=== PATIENT | female | born 1985 | race Caucasian/White ===

== ENCOUNTER 2023-07-15 17:29 | Emergency (ER) | payer OTHER, SELFPAY ==
[2023-07-15 17:36] VITALS: BP 126/87; PULSE 84; RESP 16; TEMP 36.8; O2SAT 99
--- NOTE | 2023-07-15 17:39 | ED.URI ---
HPI - URI/Sore Throat General Chief Complaint: Upper Respiratory Infection Stated Complaint: Cough/Congestion/Flank Pain Source: patient, RN notes reviewed and old records reviewed Mode of arrival: ambulatory Limitations: no limitations History of Present Illness HPI Narrative: 37-year-old female presents to [facility] with complaints of cough, congestion that started weeping of May. Patient states has been taking Mucinex with no relief. Patient also states was seen at another urgent care the beginning of May and given antibiotics and steroids but states is having worsening cough and congestion. MD elicited complaint: cough and nasal congestion Onset (ago): month(s) (2) Consistency: constant Severity: moderate Description of mucous: yellow Exacerbating factors: nothing Relieving factors: nothing Treatments prior to arrival: cold medicine , antibiotics and other ( Steroids) Related Data Allergies Allergy/AdvReac Type Severity Reaction Status Date / Time No Known Allergies Allergy Unverified 01/21/18 10:09 Review of Systems Constitutional: Constitutional: Reports no additional constitutional complaints, Denies body ache(s), Denies chills, Denies fatigue, Denies fever(s) and Denies headache(s) Eyes: Eyes: Reports no additional eye complaints and Denies blurry vision ENT: Reports system reviewed and no additional complaints, except as documented, Denies vertigo, Denies dizziness, Denies ear discharge, Denies otalgia, Denies facial pain, Denies headache(s), Denies nasal congestion, Reports nasal discharge, Reports post nasal drip, Reports sinus pain, Reports sinus pressure and Denies sore throat Cardiovascular: Cardiovascular: Reports no additional cardiovascular complaints, Denies chest pain, Denies chest pain at rest, Denies rapid heart rate and Denies dyspnea Respiratory: Respiratory: Reports no additional respiratory complaints, Reports chest congestion, Reports cough, Denies pain on inspiration, Denies pain with cough and Denies dyspnea Gastrointestinal: Gastrointestinal: Denies abdominal pain, Denies diarrhea, Denies nausea and Denies vomiting Integumentary/Breasts: Skin/Breast: Denies rash Neurologic: Reports system reviewed and no additional complaints, except as documented, Denies vertigo, Denies dizziness and Denies headache(s) Endocrine: Endocrine: Denies fatigue PMFSH Comments At the time of my signature, I reviewed and agree with the nursing past medical, surgical, social, and family history. There is no relevant family history pertinent to the patient complaint. Exam Const: General: cooperative, healthy appearing, no acute distress and well nourished Nutritional Appearance: well nourished Orientation/consciousness: patient oriented x3 Limitations: no limitations HENMT: Head: normal to inspection and normocephalic Ears: external ears normal, mastoids normal, Abnormal EAC present and TM abnormal wth effusion serous bilateral Face/Nose/Sinus: Abnormal mucous membranes and turbinates present boggy and erythematous, Nasal discharge present purulent, normal facial exam and No sinus tenderness Face and sinus: normal facial exam Mouth: Yes Normal oral and palatal mucosa present, Yes oropharynx normal and Yes moist mucous membranes Throat: posterior oropharynx normal, tonsils normal, uvula midline and no uvular edema Eyes: General: appearance normal, both eyes and all related structures Sclera: sclerae normal Pupils: Equal, round and reactive pupils present Resp: Effort & Inspection: normal respiratory effort, able to speak in complete sentences, no audible wheezes, no cough, no respiratory distress and no retractions Auscultation: clear to auscultation bilaterally, no crackles, no rales, no rhonchi and no wheezes Cardio: Rate: regular rate Rhythm: regular rhythm Skin: General skin exam: normal color and no rashes or lesions noted Neuro: General: patient oriented x3 Cranial nerves: Yes Equal, round
[2023-07-15 17:40] VITALS: BP 126/87; PULSE 84; RESP 16; TEMP 36.8; O2SAT 99
== END 2023-07-15 17:53 | disposition home or self-care (01) ==
PROVIDERS: Emergency Provider Registered Nurse
DX: J32.9 Chronic sinusitis, unspecified (principal); J30.89 Other allergic rhinitis
CPT/HCPCS: 99213; G0463

== ENCOUNTER 2024-12-03 13:00 | Emergency (ER) | payer OTHER, SELFPAY ==
--- NOTE | ~2024-12-03 | XR_ITS ---
[id number] Ordering provider: Renuka Solano NP History: . pain anterior aspect, boyfriend picked pt up . Comparison: None. FINDINGS: BONES: No acute right rib fracture or fracture of the visualized osseous structures. LUNGS: No effusions or infiltrates. No pneumothorax. SOFT TISSUES: Normal. IMPRESSION: No right rib fracture (Note: subtle/nondisplaced rib fractures can be occult on plain films and if th ere is continued clinical suspicion for rib fracture, recommend follow up CT chest). Reviewed, dictated and finalized at location A. IMPRESSION: No right rib fracture (Note: subtle/nondisplaced rib fractures can be occult on plain films and if there is continued clinical suspicion for rib fracture, rec ommend follow up CT chest).
--- NOTE | 2024-12-03 13:12 | ED.BACK ---
HPI - Back Pain/Injury General Chief Complaint: Unspecified Stated Complaint: Rib Pain Time Seen by Provider: 12/03/24 13:12 Source: patient Mode of arrival: ambulatory Limitations: no limitations History of Present Illness HPI Narrative: 39-year-old female presents with right anterior rib pain. Patient states last night she was having some back pain and asked her boyfriend to pop her back. Patient states her boyfriend picked her up from behind and lifted her, felt pain and pop to right ribs. Pain worse with taking deep breath and laughing. all systems reviewed and negative except as noted above. Related Data Allergies Allergy/AdvReac Type Severity Reaction Status Date / Time No Known Allergies Allergy Unverified 01/21/18 10:09 Review of Systems Review of Systems: CONSTITUTIONAL: Denies fever, chills, or sweats. EYES: Denies visual changes, redness, or discharge. ENT: Denies rhinorrhea, congestion, sore throat, or otalgia. CARDIOVASCULAR: Denies chest pain, palpitations, or edema. RESPIRATORY: Denies cough or dyspnea. GASTROINTESTINAL: Denies abdominal pain, nausea, vomiting, or diarrhea. GENITOURINARY: Denies dysuria or hematuria. SKIN: Denies rash or itching. MUSCULOSKELETAL: Reports right rib pain NEUROLOGIC: Denies headache, numbness, or weakness. PSYCHIATRIC: Denies anxiety or depression. All other systems reviewed are negative, except as documented in HPI. PMFSH Comments At time of signature, agree with nursing past medical, surgical, social and family history. There is no relevant family history pertinent to the presenting complaint. Exam Narrative: GENERAL: This is a well-nourished, well-developed patient, in no apparent distress. HEAD: normocephalic, atraumatic. EYES: PERRL. Sclera clear/white. Vision is grossly intact. EARS: External ears normal NOSE: External nose normal NECK: Neck supple, non-tender without lymphadenopathy, masses or thyromegaly. CARDIOVASCULAR: Regular rate and rhythm without murmurs, gallops, or rubs. RESPIRATORY: Clear to auscultation. Breath sounds equal bilaterally. No wheezes, rales, or rhonchi. SKIN: warm, Dry, intact with no suspicious lesions or rash, good texture and turgor. NEURO: awake, alert, and oriented to person, place and time. There were no obvious focal neurologic abnormalities. EXTREMITIES: No joint tenderness, effusion, or edema noted. MUSCULOSKELETAL: tenderness to right anterior ribs on palpation. No swelling or bruising. Course Course Level of Care: Express Care Visit Vital Signs Vital signs: Vital Signs Temperature 36.9 C 12/03/24 13:14 Pulse Rate 73 12/03/24 13:14 Respiratory Rate 16 12/03/24 13:14 Blood Pressure 118/73 12/03/24 13:14 Pulse Oximetry 100 12/03/24 13:14 Oxygen Delivery Room Air 12/03/24 13:14 Temperature 36.9 C 12/03/24 13:14 Pulse Rate 73 12/03/24 13:14 Respiratory Rate 16 12/03/24 13:14 Blood Pressure 118/73 12/03/24 13:14 Pulse Oximetry 100 12/03/24 13:14 Oxygen Delivery Room Air 12/03/24 13:14 Reviewed MDM - Back Pain/Injury MDM Narrative Medical decision making narrative: x-ray of right ribs was negative for fracture. Discussed results with patient. Recommend Tylenol or ibuprofen, ice. Recommend follow-up with primary care physician if pain is not improving. Imaging Data My impression: agree with Radiology Radiologist's impression: [id number] Ordering provider: Renuka Solano NP History: . pain anterior aspect, boyfriend picked pt up . Comparison: None. FINDINGS: BONES: No acute right rib fracture or fracture of the visualized osseous structures. LUNGS: No effusions or infiltrates. No pneumothorax. SOFT TISSUES: Normal. IMPRESSION: No right rib fracture (Note: subtle/nondisplaced rib fractures can be occult on plain films and if there is continued clinical suspicion for rib fracture, recommend follow up CT chest). Discharge Plan Discharge Clinical Impression: Contusion of rib on right side Qualifiers: Encounter type: initial encounter Qualified Code(s): S20.211A - Contusion of right front wall of thorax, initial encounter Patient Disposition: Home Condition: Stable Instructions: Rib Contusion (ED) Additional Instructions: the x-ray of your right ribs was negative for fracture. Take ibuprofen or Tylenol every 6-8 hours as needed for pain. Apply ice as needed for pain. If pain is not improving follow-up with your primary care physician for further evaluation. Patient Language: Yoruba Follow-up/Referrals: PHYSICIAN,ASSISTANT PARALEGAL [Primary Care Provider] - Time of Disposition: 13:59
[2024-12-03 13:14] VITALS: BP 118/73; PULSE 73; RESP 16; TEMP 36.9; O2SAT 100
--- OUTSIDE RECORDS SUMMARY | 2024-12-03 13:53 | XMS_ITS | Clinical Summary ---
Author Organization [address] Address [address] [place] [id number] Care Team Providers Care Staple Side Laster Name Role Phone Florencia Johnston Primary Care Provider Allergies Active Allergy Reactions Criticality Noted Date Comments Bee Pollen Itching,Rhinitis Low 02/23/2011 Pt has general allergies to outdoors, itching/runny nose Latex Itching,Rash,Swelling Medium 08/11/2023 Medications famotidine (PEPCID) 40 mg tabletIndications:D yspepsia,Heartburn, gastroesophageal reflux disease Take 1 tablet (40 mg total) by mouth every morning Active ascorbic acid (VITAMIN C ORAL)Indications:UPTON PPLEMENT Take 1 tablet by mouth 3 (three) times a week Active ibuprofen (ADVIL,MOTRIN) 600 mg tablet Take 1 tablet (600 mg total) by mouth every 6 (six) hours as needed for pain 42 tablet 4 Active acetaminophen (TYLENOL) 500 mg tablet Take 2 tablets (1,000 mg total) by mouth every 6 (six) hours 42 tablet 4 Active oxyCODONE (ROXICODONE) 5 mg immediate release tabletIndications:P ain Take 1 tablet (5 mg total) by mouth every 4 (four) hours as needed for pain 10 tablet 4 Active polyethylene glycol (MIRALAX) 17 gram/dose bulk powder Take 17 g by mouth daily for 7 days 119 g 4 Active ondansetron ODT (ZOFRAN-ODT) 4 mg disintegrating tablet Take 1 tablet (4 mg total) by mouth every 8 (eight) hours as needed for nausea or vomiting 20 tablet 4 Active estradioL (VIVELLE-DOT) 0.025 mg/24 hrIndications:Ovari an mass, right,LOLITA III (cervical intraepithelial neoplasia grade III) with severe dysplasia APPLY 1 PATCH TOPICALLY TO THE SKIN 2 TIMES A WEEK 8 patch 2 5 Active Active Problems Problem Noted Date Diagnosed Date Adnexal mass 09/19/2023 Mixed anxiety and depressive disorder 08/12/2023 Polycystic ovarian syndrome 08/12/2023 LOLITA III (cervical intraepith elial neoplasia grade III) with severe dysplasia 08/12/2023 Overview (11/04/2023): History: - 06/21/23: CT A/P Large multilocular, septated cystic mass pelvic mass, measuring 19.2 x 15.5 x 10.4 cm, likely arising from the right ovary. Recommend solar engineer consultation for surgical resection. No evidence of acute appendicitis. Small hiatal hernia. - 06/21/23: US Pelvis Enlarging complex cystic lesion right adnexa measuring up to 18.7 cm. Ovarian tissue is not clearly visualized, torsion not excluded. Left ovary surgically absent, no adnexal abnormality. Intrauterine device in normal position. 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+) - 07/01/23: Colpo w/ biopsies and ECC at least CIN2 - 08/23/23: LEEP CIN2 with positive margin - 10/17/23: TLH/RSO (hx LSO), cervix w/o dysplasia, R ovary with mucinous cystadenoma, benign Plan: -Repeat Pap 6-12 mo post op -Plan for annual Pap after -Follow up in [facility] continuity clinic Type 2 diabetes mellitus without complication Pain in wrist Carpal tunnel syndrome Numbness and tingling in both hands Surgical History Surgery Date Site/Laterality Comments LEFT OOPHORECTOMY 06/20/2012 - 06/19/2013 CHOLECYSTECTOMY 06/20/2009 - 06/19/2010 Family History Medical History Relation Name Comments Anesthesia problems Neg Hx Social History Tobacco Use Types Packs/Day Years Used Date Smoking Tobacco: Every Day Cigarettes 0.5 23.5 Started: 2001 Passive Smoke Exposure: Past Smokeless Tobacco: Never Tobacco Cessation:Ready to Q uit: Not Asked; Counseling Given: Not Answered Passive Exposure Comments:Dad smoked Alcohol Use Standard Drinks/Week Comments Yes 0 (1 standard drink = 0.6 oz pur e alcohol) AUDIT-C Answer Date Recorded Q1: How often do you have a drink containing alc ohol? Monthly or less 10/05/2023 Q2: How many drinks containi ng alcohol do you have on a typical day when you are drinking? 1 or 2 10/05/2023 Q3: How often do you have si x or more drinks on one occasion? Never 10/05/2023 Personal Safety Answer Date Recorded Have you ever been in or are you currently in a harmful physical or emotional relationship or is someone making you feel afraid or unsafe? Denies 10/17/2023 Comments No Sex and Gender Information Value Date Recorded Sex Assigned at Not on file Legal Sex Female 6:49 PM [employer]PERINTENDENT [employer] Gender Identity Not on file Sexual Orientation Not on file Occupation Industry Job Start Date Job End Date [employer] Not on file Not on file Not on file Obstetrics History Para Term AB IAB SAB Ectopic Multiple Livin g Live Births 3 2 2 0 1 0 1 0 0 2 2 Date Outcome GA Total Labor Labor/2nd/3rd Weight Sex Type Anes PTL Bibiana A1 A5 Name Clin SAB 005 Term 3.884 kg (8 lb 9 oz) F Vagina l Livin g Complications: Courtney koby Hypertension,Gestational diabetes 008 Term 37w 0d 3.204 kg (7 lb 1 oz) F Vagina l Livin g Complications:Gestational di abetes Last Filed Vital Signs Vital Sign Reading Time Taken Comments Blood Pressure 107/72 11/04/2023 12:57 PM CDT Pulse 91 11/04/2023 12:57 PM CDT Temperature 36.7 C (98.1 F) 11/04/2023 12:57 PM CDT Respiratory Rate 12 10/17/2023 1:10 PM CDT Oxygen Saturation 99% 11/04/2023 12:57 PM CDT Inhaled Oxygen Concentration - - Weight 71.9 kg (158 lb 8 oz) 11/04/2023 12:57 PM CDT Height 158.8 cm (5' 2.5) 10/05/2023 8:05 AM CDT Body Mass Index 28.53 10/05/2023 8:05 AM CDT Plan of Treatment Health Maintenance Due Date Last Done Comments Albumin Creatinine Ratio, Urine 1983 Breast Cancer Screening-Mammogram 1983 Depression Screening 1983 Hepatitis C Screening 1983 Dilated Eye Exam 1983 Foot Exam 1983 Lipid Panel 1983 DTaP/Tdap/Td Vaccine (1 - Tdap) 09/07/1994 Varicella Vaccines (1 of 2 - 13+ 2-dose series) 09/07/1996 Hepatitis B Screening 09/07/2001 Pneumococcal vaccine <65 (2 of 2 - PCV) 04/04/2014 04/04/2013 Covid-19 Vaccine (4 - 2023-2 5 season) 2024 05/13/2021, 09/14/2020, 08/19/2020 Hemoglobin A1C 04/05/2024 10/05/2023 Cervical Cancer Screening 06/24/20242023, 06/24/2023 Regular Well Visit/Exam 18-64 06/24/2024 06/24/2023 eGFR 10/04/2024 10/05/2023, 06/21/2023, 07/01/2019 Influenza Vaccine (Season Ended) 2025 05/13/2021, 04/11/2017, 04/04/2013 HPV Vaccines Aged Out No longer eligi ble based on patient's age to complete this topic Procedures Procedure Name Priority Date/Time Associated Diagnosis Comments EGFR Routine 10/05/2023 8:53 AM CDT Preoperative testing POCT HEMOGLOBIN A1C Routine 10/05/2023 8 :17 AM CDT HIGH RISK HPV DNA DETECTION WITH GENOTYPING Routine 06/24/2023 10:48 AM SUPERINTENDENT COLLIERY Screening for malignant neoplasm of cervix from Last 3 Months or Most Recently Relevant to Health Maintenance Results * eGFR (10/05/2023 8:53 AM CDT) eGFR >90 >=60 mL/min/1. 73 m2 Comment: Interpretive Data Reference Interval Normal >/= 90 mL/min/1.73m2 Mildly decreased* 60 - 89 mL/min/1.73m2 Mildly to moderately decreased 45 - 59 mL/min/1.73m2 Moderately to severely decreased 30 - 44 mL/min/1.73m2 Severely decreased 15 - 29 mL/min/1.73m2 Kidney Failure < 15 mL/min/1.73m2 *Relative to young adult level Estimated glomerular filtration rate is determined by the 2020 CKD-EPI equation recommended by the National Kidney Foundation (A Unifying Approach to GFR Estimation: Recommendations of the NKF-ASK Task Force on Reassessing the Inclusion of Race in Diagnosing Kidney Disease, JASN 2020). The CKD-EPI equation should not be used for patients with unstable renal function and has not been validated in children and those over 70. Current interpretive data was last reviewed 2021. Blood 10/05/2023 8:53 AM CDT 10/05/2023 9:29 AM CDT us Spike Moran NP LAB BLOOD ORDERABLES Fin al Result Performing Organization Address [facility] de Phone Number [facility] [place] [address] * (ABNORMAL) POCT hemoglobin A1c (10/05/2023 8:17 AM CDT) Hgb A1C, POC 6.1(H) 4.0 - 5.6 % Est Average Gluc POC 128 mg/dL [facility] Comment: The ADA recommends reporting an estimated Average Glucose (eAG) with all Hemoglobin A1c results using the equation derived from a study of 507 normal and diabetic adults. Minority populations were underrepresented and children were not included. (Diabetes Care 31:9818-0076, 2008). The eAG is not equivalent to a fasting glucose. Blood 10/05/2023 8:17 AM CDT 10/05/2023 8:17 AM CDT us Vinod Oneill MD POINT OF CARE TEST ORDER ROSIE Final Result Performing Organization Address [facility] Co de Phone Number [facility] Department [place] [address] * (ABNORMAL) High Risk HPV DNA Detection with Genotyping (Molecular component) (06/24/2023 10:48 AM SUPERINTENDENT COLLIERY) HPV HR 16 Detected(A) Not Detected [facility] Comment:Testing performed by : [facility], [address] [place]., [address] HPV HR 18 Not Detected Not Detected [facility] Comment:Testing performed by : [facility], [address] [place]., [address] HPV HR Non 16/18 Detected(A) Not Detected [facility] Comment: Interpretive Data Nucleic acid amplification for detection of high-risk Human Papilloma virus (HPV) is performed by the Julius Mary 6800 HPV test. This assay specifically detects HPV-16 and HPV-18 genotypes. The following HPV genotypes are detected as high-risk HPV: HPV-31, 33, 35, ,39, 45, 51, 52, 56, 58, 59, 66, and 68. This assay has been approved by the [place] Food and Drug Administration for detection of HPV in cervical specimens collected by a physician using an endocervical brush/spatula or cervical broom and placed in the ThinPrep Pap Test PreservCyt collection containers. The performance characteristics of this test have been verified by the [facility] Molecular Infectious Disease laboratory. Correlate with separately reported cytology results, as applicable. Interpretive data last revised 22 Testing performed by: [facility], [address] [place]., [address] Endocervical 06/24/2023 10:4 8 AM SUPERINTENDENT COLLIERY 06/27/2023 1:11 PM SUPERINTENDENT COLLIERY [facility]28/[facility] 5:32 AM [employer]PERINTENDENT COLLIERY Clinical history and diagnosis->Liquid-based PAP test with high risk HPV test- Z12.4 Number of vials->1 Testing type->Screening Last menstrual period (date if known)->Unknown Contraceptive use->IUD Florencia Johnston DO LAB BODY FLUIDS AND [place] [id number] [address] Department [place] [address] from Last 3 Months or Most Recently Relevant to Health Maintenance Insurance AETNA [facility] Care Teams Staple Side Laster Relationship Specialty Start Date End Date Florencia Johnston DO [address] [place] PCP - General Obstetrics and Gynecology 09/22/23
--- OUTSIDE RECORDS SUMMARY | 2024-12-03 13:53 | XMS_ITS | Clinical Summary ---
Author Organization [facility] Address [address] [place] [address] Phone Care Team Providers Care Shipping Associate Name Role Phone Kaylen Paniagua APRN, CORRECTIONS CADET Primary Care Pro vider Medications metFORMIN (GLUCOPHAGE-XR) 500 MG TABLET SR 24 HR Take 500 mg by mouth daily. This RX is for Metformin SR. Active sertraline (ZOLOFT) 50 MG Tablet Take 75 mg by mouth daily. Active spironolactone (ALDACTONE) 50 MG Tablet Take 50 mg by mouth daily. For PCOS Active methylPREDNISol one (MEDROL DOSPACK) 4 MG Tablet Therapy Pack See product package insert for dosing schedule 21 Tablet Active Social History Tobacco Use Types Packs/Day Years Used Date Smoking Tobacco: Every Day Cigarettes Smokeless Tobacco: Never Alcohol Use Standard Drinks/Week Comments Never 0 (1 standard drink = 0.6 oz pur e alcohol) Comments No Sex and Gender Information Value Date Recorded Sex Assigned at Female 02/08/2024 9:53 PM CDT Legal Sex Female 10:38 PM CDT Gender Identity Female 02/08/2024 9:53 PM CDT Sexual Orientation Straight 02/08/2024 9: 53 PM CDT Last Filed Vital Signs Vital Sign Reading Time Taken Comments Blood Pressure 135/75 02/08/2024 10:18 PM CDT Pulse 72 02/08/2024 9:26 PM CDT Temperature 36.8 C (98.3 F) 02/08/2024 9:26 PM CDT Respiratory Rate 16 02/08/2024 9:26 PM CDT Oxygen Saturation 100% 02/08/2024 9:26 PM CDT Inhaled Oxygen Concentration - - Weight 68 kg (150 lb) 02/08/2024 9:26 PM CDT Height 162.6 cm (5' 4) 02/08/2024 9:26 PM CDT Body Mass Index 25.75 02/08/2024 9:26 PM CDT Plan of Treatment Health Maintenance Due Date Last Done Comments Hepatitis C Virus (HCV) Screening 1983 Mammogram 1983 TdaP Immunization 1983 Human Papillomavirus (HPV) Immunization (1 - 3-dose series) 09/07/1998 Hepatitis B Immunization (1 of 3 - 19+ 3-dose series) 09/07/2002 Pneumococcal Immunization Combined (2 of 2 - PCV) 04/04/2014 04/04/2013 Discussion re Starting/Frequency of Mammograms 2023 SARS-COV-2 Immunization ( season) 2024 05/13/2021, 09/14/2020, 08/19/2020 Influenza Immunization (Seas on Ended) 2025 04/11/2017, 04/04/2013 Respiratory Syncytial Virus (RSV) Immunization (Adult) (1 - 1-dose 75+ series) 09/07/2058 Meningococcal Immunization (ACWY) Aged Out No longer eligible b ased on patient's age to complete this topic Rotavirus Immunization Aged Out No lo nger eligible based on patient's age to complete this topic Insurance MEDICAID AETNA [facility] Care Teams Shipping Associate Relationship Specialty Start Date End Date Kaylen Paniagua, CLINICAL DOCUMENTATION IMPROVEMENT SPECIALIST, CORRECTIONS CADET [address] [place] [address] PCP - General Family Medicine 04/27/21
--- OUTSIDE RECORDS SUMMARY | 2024-12-03 13:53 | XMS_ITS | Referral Summary ---
Author Organization [address] Address [address] [place] [id number] Care Team Providers Care Sewing Techniques Demonstrator Name Role Phone Florencia Johnston Primary Care [...] likely arising from the right ovary. Recommend gold beater consultation for surgical resection. No evidence of [...] for annual Pap after -Follow up in [facility] continuity clinic Type 2 diabetes mellitus without complication Pain in wrist Carpal tunnel syndrome Numbness and tingling in both hands Social History Tobacco Use Types Packs/Day Years [...] on file Legal Sex Female 6:49 PM HEALTH PROGRAM ANALYST Gender Identity Not on file Sexual Orientation Not on file Occupation Industry Job Start Date Job End Date [employer] Not on file Not on file Not on file Last Filed Vital Signs Vital Sign Reading [...] 10/05/2023 8:05 AM CDT Plan of Treatment Not on file Procedures Procedure Name Priority Date/Time Associated Diagnosis Comments EGFR Routine 10/05/2023 8:53 AM CDT Preoperative testing POCT HEMOGLOBIN A1C Routine 10/05/2023 8 :17 AM CDT HIGH RISK HPV DNA DETECTION WITH GENOTYPING Routine 06/24/2023 10:48 AM HEALTH PROGRAM ANALYST Screening for malignant neoplasm of cervix from [...] NP LAB BLOOD ORDERABLES Fin al Result [facility] Department [place] [address] * (ABNORMAL) POCT hemoglobin A1c (10/05/2023 8:17 AM CDT) Hgb A1C, POC 6.1(H) 4.0 - 5.6 % Est Average Gluc POC 128 mg/dL [facility] Comment: The ADA recommends reporting an estimated Average Glucose (eAG) with all Hemoglobin A1c results using the equation derived from a study of 507 normal and diabetic adults. Minority populations were underrepresented and children were not included. (Diabetes Care 31:8927-5710, 2008). The eAG is not equivalent to a fasting glucose. Blood 10/05/2023 8:17 AM CDT 10/05/2023 8:17 AM CDT us Vinod Oneill MD POINT OF CARE TEST ORDER ROSIE Final Result [facility] Department [place] [address] * (ABNORMAL) High Risk HPV DNA Detection with Genotyping (Molecular component) (06/24/2023 10:48 AM HEALTH PROGRAM ANALYST) HPV HR 16 Detected(A) Not Detected [facility] Comment:Testing performed by : [facility], [address] [place]., [address] HPV HR 18 Not Detected Not Detected [facility] Comment:Testing performed by : [facility], [address] [place]., [address] HPV HR Non 16/18 Detected(A) Not Detected [...] this test have been verified by the [facility] Molecular Infectious Disease laboratory. Correlate with separately reported cytology results, as applicable. Interpretive data last revised 22 Testing performed by: [facility], [address] [place]., [address] Endocervical 06/24/2023 10:4 8 AM HEALTH PROGRAM ANALYST 06/27/2023 1:11 PM HEALTH PROGRAM ANALYST Narrative [facility] - 06/28/2023 5:32 AM HEALTH PROGRAM ANALYST Clinical history and diagnosis->Liquid-based PAP test with high risk HPV test- Z12.4 Number of vials->1 Testing type->Screening Last menstrual period (date if known)->Unknown Contraceptive use->IUD Florencia Johnston DO LAB BODY FLUIDS AND STO OLS ORDERABLES Final Result [facility] [address] Department [place] [address] from Last 3 Months or Most Recently Relevant to Health Maintenance Insurance [employer] [facility] Care Teams Sewing Techniques Demonstrator Relationship Specialty Start Date End Date Florencia Johnston DO [address] [place] PCP - General Obstetrics and Gynecology 09/22/23
--- OUTSIDE RECORDS SUMMARY | 2024-12-03 13:53 | XMS_ITS | Patient Health Record ---
Author Organization [facility] Address [address] [place] [address] Care Team Providers Care Cold Work Operator Name Role Phone Andie Mehta Primary Care Provider Allergies No Known Allergies Reason For Referral No Information Medications Medication SIG (Take, Route, Frequency, Duration) Notes Start Date End Date Status Mirena (52 MG) 20 MCG/24HR as directed Intrauterine Last one placed 2018 Active Sertraline HCl 25 MG TAKE 1 TABLET BY MOUTH EVERY DAY for 30 Active Spironolactone 50 MG TAKE 1 TABLET BY MOUTH EVERY DAY FOR 30 DAYS for 30 Active hydrOXYzine HCl 25 MG TAKE ONE TABLET BY MOUTH TWO TIMES A DAY for 30 Active Sertraline HCl 50 MG TAKE ONE TABLET BY MOUTH ONCE A DAY WITH 25MG for 30 Active Social History Tobacco Use: Social History Observation Description Date Details (start date - stop date) Current Smoker NA - NA Sex Assigned At : Social History Observation Description Sex Assigned At Female Dont use, Tobacco Use/Smoking Question Answer Notes Are you a current every day smoker Alcohol Screen (Audit-C) Question Answer Notes Did you have a drink containing alcohol in the p ast year? No Points 0 Interpretation Negative Problems Problem Type SNOMED Code ICD Code Onset Dates Problem Status W/U Status Risk Notes Problem 868172275 Polycystic ovarian syndrome (E28.2) Active confirmed Problem Tobacco user (127361518) Nicotine dependence, unspecified, uncomplicated (F17.200) Active confirmed Problem Carpal tunnel syndrome (72955238) Carpal tunnel syndrome (G56.00) Active confirmed Problem Mixed anxiety and depressive disorder (724721471) Depression with anxiety (F41.8) Active confirmed Problem Wrist pain (51160157) Wrist pain (M25.539) Active confirmed Problem 334168684 Type 2 diabetes mellitus without complication, without long-term current use of insulin (E11.9) 1 Active confirmed Problem Tobacco use (949709202) Tobacco use disorder (F17.200) Active confirmed Plan Of Treatment Pending Test Test Name Order Date Hemoglobin A1c CLIA Waived 08/10/2021 Insurance Providers Payer Name Payer Address Payer Phone Subscriber Number Group Number Insured Name Patient Relationship to Insured Coverage Start Date Coverage End Date [facility] [address] [place] [address] [id number] Fidelina Marinelli Self - patient is the insured 1 [facility] [address] [place] [address] [id number] Fidelina Marinelli Self - patient is the insured 2 Medical (General) History Medical History History ICD Code Polycystic ovarian syndrome E28.2 Major depressive disorder in full remiss ion, unspecified whether recurrent F32.5 Gestational diabetes mellitu s (GDM), antepartum, gestational diabetes method of control unspecified O24.419 Surgical History Surgery Date(Month/Year) 3 ablation(S) gallbladder removal left ovary removal Hospitalization History Reason Date(Month/Year) left ovary removal Child Child
--- OUTSIDE RECORDS SUMMARY | 2024-12-03 14:00 | XMS_ITS | Clinical Summary ---
Author Organization [facility] Address [address] [place] [address] Care Team Providers Care Freezer Worker Name Role Phone Tyler Camarena MD Unavailable [phone] Ezra Darling DO Primary Care Provider [phone] Source Comments [facility],non-owned Affiliates and Associated Physician Practices is amultiple site organization consisting of ambulatory clinics and hospital sitesin [place], [place], [place] and [place]. This disclosure is being madepursuant to the Care Everywhere program and may not contain all information available regarding this patient. Last updated 18.[facility] Allergies Active Allergy Reactions Criticality Noted Date Comments Adhesive Sensitivity 04/03/2013 Pollen Extract Rhinitis,Itching 02/23/2011 Pt has general allergies to outdoors, itching/runny nose Medications * This document contains information received from the source organization and may not represent a complete record from that organization. * Be aware that medications may not be up to date on this document. Alwaysverify current medications with the patient. levonorgestrel (MIRENA) 20 MCG/24HR IUD 1 Device by Intrauterine route once. Active FLUoxetine (PROZAC) 20 MG capsuleIndicati ons:Major Depressive Disorder Take 1 capsule by mouth once daily Reasons: Major Depressive Disorder 30 capsule 1 0 Active hydrOXYzine hcl (ATARAX) 25 MG tabletIndicatio ns:Anxiety Take 1 tablet by mouth every 6 hours as needed (Anxiety) Reasons: Feeling Anxious 30 tablet 1 0 Active Active Problems Problem Noted Date Diagnosed Date Constipation 09/17/2010 Immunizations Immunization Administration Dates Next Due INFLUENZA VACCINE 04/04/2013 PNEUMOCOCCAL PPSV23 04/04/2013 Social History Tobacco Use Types Packs/Day Years Used Date Smoking Tobacco: Every Day Cigarettes Smokeless Tobacco: Never Tobacco Cessation:Ready to Q uit: No; Counseling Given: Yes Alcohol Use Standard Drinks/Week Comments Never 0 (1 standard drink = 0.6 oz pur e alcohol) AUDIT-C Answer Date Recorded Q1: How often do you have a drink containing alc ohol? Never 03/30/2020 Average Number of Drinks Not on file 020 Frequency of Binge Drinking Not on file 03/20 Comments Unknown Sex and Gender Information Value Date Recorded Sex Assigned at Not on file Legal Sex Female 7:04 AM PROGRAM WRITER Gender Identity Not on file Sexual Orientation Not on file Last Filed Vital Signs Vital Sign Reading Time Taken Comments Blood Pressure 127/84 03/30/2020 9:34 AM CDT Pulse 91 03/30/2020 9:34 AM CDT Temperature 36.9 C (98.5 F) 03/30/2020 9:34 AM CDT Respiratory Rate 17 03/30/2020 9:34 AM CDT Oxygen Saturation 99% 03/30/2020 9:34 AM CDT Inhaled Oxygen Concentration - - Weight 72 kg (158 lb 12.8 oz) 03/30/2020 9:34 AM CDT Height 160 cm (5' 3) 03/30/2020 9:34 AM CDT Body Mass Index 28.13 03/30/2020 9:34 AM CDT Plan of Treatment Health Maintenance Due Date Last Done Comments LIPID TESTING 1983 MAMMOGRAM 1983 HIV SCREENING 09/07/1998 HEPATITIS C SCREENING 09/03/2001 DTAP/TDAP/TD VACCINES (1 - Tdap) 09/07/2002 HEPATITIS B VACCINE (1 of 3 - 19+ 3-dose series) 09/07/2002 PNEUMOCOCCAL VACCINE (2 of 2 - PCV) 04/04/2014 04/04/2013 COVID-19 VACCINE (1 - 2023-2 5 season) 2024 DEPRESSION SCREENING 06/20/2024 INFLUENZA VACCINE (Season Ended) 2025 04/04/20 13 ZOSTER VACCINE (1 of 2) 09/07/2033 HIB VACCINE Aged Out No longer eligi ble based on patient's age to complete this topic HPV VACCINE Aged Out No longer eligi ble based on patient's age to complete this topic MENINGOCOCCAL (Group B) VACC INE SHARED DECISION-MAKING Aged Out No longer eligibl e based on patient's age to complete this topic MENINGOCOCCAL GROUPS A/C/Y/W VACCINE Aged Out No longer eligible b ased on patient's age to complete this topic Insurance MEDICAID [employer] [facility] [place] [id number] [place] [id number] Advance Directives * FULL RESUSCITATION (Latest Code Status on File) Date Activated Date Inactivated Comments 04/02/2013 12:39 PM 04/04/2013 2:40 PM Care Teams Freezer Worker Relationship Specialty Start Date End Date Tyler Camarena MD PCP - OBGYN Obstetrics and Gynecology 04/02/13 Ezra Darling DO [address] [place] [address] PCP - General Family Medicine 07/24/15
--- OUTSIDE RECORDS SUMMARY | 2024-12-03 14:00 | XMS_ITS | Clinical Summary ---
Author Organization [facility] Address [address] [place] [address] Care Team Providers Care Sheeting Puller Name Role Phone Unavailable Primary Care Provider Unavailabl e Social History Tobacco Use Types Packs/Day Years Used Date Smoking Tobacco: Never Assessed Comments Unknown Sex and Gender Information Value Date Recorded Sex Assigned at Not on file Legal Sex Female 12:17 AM PST Gender Identity Not on file Sexual Orientation Not on file Plan of Treatment Not on file
--- OUTSIDE RECORDS SUMMARY | 2024-12-03 14:00 | XMS_ITS | Encounter Summary ---
Author Organization [facility] Address [address] [place] [address] Care Team Providers Care Carpet Winder Name Role Phone Unavailable Primary Care Provider Unavailabl e Prior Encounters Date Type Department Care Team Description 07/09/2019 Converted 13x Documents [facility] [address] [place] [phone] <No scans attached> 07/09/2019 Converted CPS Chart Documents [facility] [address] [place] [phone] <No scans attached> Plan of Treatment Not on file Procedures Procedure Name Priority Date/Time Associated Diagnosis Comments MISSED APPOINTMENT Routine 10/06/2015 2: 00 AM CDT PERIODIC ORAL EVALUATION - ESTABLISHED PATIENT Routine 03/24/2015 2:00 AM CDT ORAL HYGIENE INSTRUCTIONS Routine 2014 2:00 AM CDT TOPICAL APPLICATION OF FLUORIDE VARNISH Routine 03/24/2015 2:00 AM CDT PROPHYLAXIS - ADULT Routine 03/24/2015 2 :00 AM CDT BITEWINGS - FOUR RADIOGRAPHIC IMAGES Routine 03/24/2015 2:00 AM CDT ADDITIONAL X-RAY Routine 03/24/2015 2:00 AM CDT SINGLE X-RAY Routine 03/24/2015 2:00 AM CDT 3 MOB COMPOSITE FILLING Routine 03/24/20 15 2:00 AM CDT MISSED APPOINTMENT Routine 03/12/2015 2: 00 AM CDT MISSED APPOINTMENT Routine 02/05/2014 2: 00 AM CDT 17 MDB COMPOSITE FILLING Routine 014 2:00 AM CDT 32 PULP CAP - INDIRECT (EXCLUDING FINAL TAOIST) Routine 08/08/2013 2:00 AM DAIRY SPECIALIST 30 PULP CAP - INDIRECT (EXCLUDING FINAL TAOIST) Routine 08/08/2013 2:00 AM DAIRY SPECIALIST 30 COMPOSITE FILLING Routine 014 2:00 AM DAIRY SPECIALIST 32 NILSON COMPOSITE FILLING Routine 02/19/20 14 2:00 AM DAIRY SPECIALIST 31 NILSON AMALGAM 2 SURFACE Routine 08/07/19 14 2:00 AM DAIRY SPECIALIST 2 O AMALGAM 1 SURFACE Routine 08/07/2013 2:00 AM DAIRY SPECIALIST ORAL HYGIENE INSTRUCTIONS Routine 2013 2:00 AM DAIRY SPECIALIST TOPICAL APPLICATION OF FLUORIDE VARNISH Routine 08/07/2013 2:00 AM DAIRY SPECIALIST PROPHYLAXIS - ADULT Routine 08/07/2013 2 :00 AM DAIRY SPECIALIST COMPREHENSIVE ORAL EVALUATION - NEW OR ESTABLISHED PATIENT Routine 08/07/2013 2:00 AM DAIRY SPECIALIST INTRAORAL - COMPREHENSIVE SERIES OF RADIOGRAPHIC IMAGES Routine 08/07/2013 2:00 AM DAIRY SPECIALIST INTRAORAL PHOTO Routine 08/07/2013 2:00 AM DAIRY SPECIALIST INTRAORAL PHOTO Routine 08/07/2013 2:00 AM DAIRY SPECIALIST INTRAORAL PHOTO Routine 08/07/2013 2:00 AM DAIRY SPECIALIST INTRAORAL PHOTO Routine 08/07/2013 2:00 AM DAIRY SPECIALIST 3 O COMPOSITE FILLING Routine 08/07/2013 2:00 AM DAIRY SPECIALIST Visit Diagnoses Not on file
== END 2024-12-03 14:05 | disposition home or self-care (01) ==
PROVIDERS: Emergency Provider Nurse Practitioner Family
DX: S20.211A Contusion of right front wall of thorax, initial encounter (principal); X58.XXXA Exposure to other specified factors, initial encounter
CPT/HCPCS: 71101; 99213; G0463